=== PATIENT | female | born 1955 | race African-American/Black ===

== ENCOUNTER 2023-09-20 08:02 | Emergency (ER) | payer OTHER, MEDICAID ==
[~2023-09-20] VITALS: Ht 157.5 cm; Wt 86.3 kg
[2023-09-20 08:41] LABS: Basophils # (auto) 0 10 ^3/uL (0-0.2); Basophils % (auto) 0.5 % (0.0-2.0); Eosinophils # (auto) 0.1 10 ^3/uL (0-0.8); Eosinophils % (auto) 1.9 % (0.0-7.0); Hematocrit 40.1 % (36.0-46.0); Hemoglobin 13.2 g/dL (12.2-16.2); Lymphocytes # (auto) 1.8 10 ^3/uL (0.4-5.4); Lymphocytes % (auto) 37.5 % (10.0-50.0); Mean Corpuscular Hemoglobin 29.5 pg (28.0-32.0); Mean Corpuscular Hgb Conc. 32.9 g/dL (32.0-36.0); Mean Corpuscular Volume 89.8 fL (80.0-100.0); Monocytes # (auto) 0.4 10 ^3/uL (0-1.3); Monocytes % (auto) 9.2 % (0.0-12.0); Neutrophils # (auto) 2.5 10 ^3/uL (1.6-8.6); Neutrophils % (auto) 50.9 % (37.0-80.0); Red Blood Cells 4.46 10^6/uL (4.0-5.20); Red Cell Distribution Width 13.2 % (11.8-14.3); White Blood Cell 4.8 10^3/uL (4.4-10.8)
[2023-09-20 08:59] LABS: INR 0.99 (0.9-1.15); Partial Thromboplastin Time 28.1 SEC (24.5-34.5); Prothrombin Time 10.5 sec (9.3-11.8)
[2023-09-20 09:02] LABS: Alanine Aminotransferase 13 U/L (7-40); Albumin 4.6 g/dL (3.2-4.8); Alkaline Phosphatase 78 U/L (46-116); Anion Gap 8 (5-15); Aspartate Aminotransferase < 8 U/L (13-40); BUN/Creatinine Ratio 14.9 (10.0-20.0); Blood Urea Nitrogen 14 mg/dL (9-23); Carbon Dioxide 27 mmol/L (20-30); Chloride 106 mmol/L (98-107); Glucose 111 mg/dL (74-106); Magnesium 1.8 mg/dL (1.6-2.6); Potassium 3.6 mmol/L (3.5-5.1); Sodium 141 mmol/L (136-145)
[2023-09-20 09:03] LABS: Bilirubin, Total 0.5 mg/dL (0.2-1.0); Total Protein 7.3 g/dL (5.7-8.2)
[2023-09-20 10:00] VITALS: PULSE 70; RESP 14; O2SAT 95
[2023-09-20 10:46] LABS: Urine Bacteria None Seen /hpf (None Seen)
[2023-09-20] MEDS: KETOROLAC TROMETH 30 MG/ML 1ML VIAL IV ONE (11:04)
[2023-09-20] MEDS: METOCLOPRAMIDE HCL 5MG/ml INJ 2ml VIAL IV ONE (11:04)
[2023-09-20 11:35] LABS: Urine Blood Negative /uL (Negative); Urine Clarity Clear (Clear); Urine Color Yellow (Yellow); Urine Protein, UAD Negative (Negative); Urine Specific Gravity 1.023 (1.001-1.035); Urine Urobilinogen Normal (Negative); Urine WBC <1 /hpf (0 - 5); Urine pH 6.5 (5.0-9.0)
[2023-09-20] MEDS ORDERED: DICL50TA2 PO (11:44)
[2023-09-20 12:00] VITALS: BP 125/70; PULSE 65; RESP 14; TEMP 98; O2SAT 95
[2023-09-20] MEDS ORDERED: OMEP20TA PO (13:07)
== END 2023-09-20 13:06 | disposition home or self-care (01) ==
LOC: ER 08:02
DX: R07.89 Other chest pain (principal); I10 Essential (primary) hypertension; M77.8 Other enthesopathies, not elsewhere classified
CPT/HCPCS: 36415; 71045; 73030; 80053; 81001; 83735; 83880; 84484; 85025; 85610; 85730; 93005; 96374; 96375; 99285; J1885; J2765